=== PATIENT | male | born 1990 | race Asian ===

== ENCOUNTER 2020-06-30 16:59 | Emergency (ER) | payer BC ==
[~2020-06-30] VITALS: Ht 167.6 cm; Wt 99.8 kg
[2020-06-30 17:17] VITALS: BP 155/103
--- NOTE | 2020-06-30 17:21 | NUR ---
C/O UPPER BACK PAIN X 4 MONTHS & COUGH X 2 WEEKS. T 98.5, P 124, 4 30, O2SAT 98 % & BP 155/103 AT THIS TIME. MED HX: HTN
--- NOTE | 2020-06-30 17:50 | NUR ---
Patient being evaluated by JULIANE BATEMAN at [facility]
--- NOTE | 2020-06-30 18:05 | NUR ---
COVID SWAB DONE.
[2020-06-30 18:07] VITALS: BP 140/97
--- NOTE | 2020-06-30 18:07 | NUR ---
Patient discharged with v/s stable. Written and verbal after care instructions given and explained. Patient alert, oriented and verbalized understanding of instructions. Ambulatory with steady gait. All questions addressed prior to discharge. ID band removed. Patient advised to follow up with PMD. Rx of ROBITUSSIN &NAPROXEN given. Patient educated on indication of medication including possible reaction and side effects. Opportunity to ask questions provided and answered.
== END 2020-06-30 18:07 | disposition home or self-care (01) ==
LOC: MED 16:59
DX: S39.012A Strain of muscle, fascia and tendon of lower back, initial encounter (principal); R05 Cough; I10 Essential (primary) hypertension; Z20.828 Contact with and (suspected) exposure to other viral communicable diseases; X50.0XXA Overexertion from strenuous movement or load, initial encounter; Y93.89 Activity, other specified; Y92.89 Other specified places as the place of occurrence of the external cause; Y99.8 Other external cause status
CPT/HCPCS: 99283; U0003